=== PATIENT | male | born 1975 | race Caucasian/White ===

== ENCOUNTER 2023-02-12 09:40 | Outpatient (OUT) | payer OTHER, SELFPAY ==
[2023-02-12 10:22] LABS: Basophils Percent Auto 0.2 % (0.2-2.0); Eosinophils Absolute Auto 0.1 10^3/uL (0.0-0.7); Eosinophils Percent Auto 2.6 % (0.9-7.0); Hematocrit 39.3 % (42.0-54.0); Hemoglobin 13.7 g/dL (14.0-18.0); Immature Granulocytes Abs Auto 0.01 10^3/uL (0.00-0.03); Immature Granulocytes Pct Auto 0.2 % (0.0-0.5); Lymphocytes Percent Auto 20.9 % (20.5-60.0); Mean Corpuscular HGB Conc 34.9 g/dL (29.9-35.2); Mean Corpuscular Hemoglobin 30.6 pg (25.9-34.0); Mean Corpuscular Volume 87.9 fL (80.0-94.0); Mean Platelet Volume 10.4 fL (9.5-13.5); Monocytes Absolute Auto 0.4 10^3/uL (0.3-0.8); Monocytes Percent Auto 9.4 % (1.7-12.0); Neutrophils Absolute Auto 3.1 10^3/uL (1.4-6.5); Neutrophils Percent Auto 66.7 % (43.0-75.0); Platelet Count 147 10^3/uL (150-450); Red Blood Count 4.47 10^6/uL (4.70-6.10); Red Cell Distribution Width 11.9 % (11.0-15.0); White Blood Count 4.6 10^3/uL (4.0-11.0)
[2023-02-12 10:23] LABS: Estimated Average Glucose 82 mg/dL; Glycohemoglobin A1C 4.5 % (4.5-6.2)
[2023-02-12 10:36] LABS: Erythrocyte Sedimentation Rate 3 mm/hr (<=15)
[2023-02-12 11:11] LABS: Prostate Specific Antigen Scrn 1.44 ng/mL (<=4.00)
[2023-02-12 11:21] LABS: Alanine Aminotransferase 45 U/L (16-63); Albumin Globulin Ratio 1.1; Albumin Level 3.8 g/dL (3.4-5.0); Alkaline Phosphatase 76 U/L (46-116); Anion Gap 13.6; Aspartate Amino Transferase 26 U/L (15-37); BUN Creatinine Ratio 15.1; Bilirubin Total 0.4 mg/dL (0.2-1.0); Calcium 9.1 mg/dL (8.5-10.1); Carbon Dioxide 26.6 mmol/L (21.0-32.0); Chloride 105 mmol/L (98-107); Chol HDL Ratio 4.6; Cholesterol 198 mg/dL (<=200); Estimated GFR (African America >60 (>=60); Estimated GFR (Non-African Ame >60 (>=60); Free T3 3.07 pg/mL (2.18-3.98); Globulin 3.4 g/dL; Glucose 105 mg/dL (74-106); HDL Cholesterol 43 mg/dL (40-60); Potassium 4.2 mmol/L (3.5-5.1); Sodium 141 mmol/L (136-145); Total Protein 7.2 g/dL (6.4-8.2); Triglycerides 277 mg/dL (<=150); Uric Acid 7.2 mg/dL (3.5-7.2); VLDL CHOLESTEROL 55.4 mg/dL
[2023-02-12 11:54] LABS: C Reactive Protein <0.2 mg/dL (<=1.0)
[2023-02-13 05:07] LABS: Antistreptolysin O Ab 470.9 IU/mL (0.0-200.0)
[2023-02-13 07:08] LABS: Rheumatoid Factor (RF) <10.0 IU/mL (<14.0)
[2023-02-13 10:13] LABS: Insulin 12.6 uIU/mL (2.6-24.9)
[2023-02-15 14:09] LABS: Free Testosterone(Direct) 8.4 pg/mL (6.8-21.5); Testosterone 455 ng/dL (264-916)
== END 2023-02-12 09:41 ==
PROVIDERS: PCP Family Medicine; Visit Provider Family Medicine
DX: Z00.00 Encounter for general adult medical examination without abnormal findings (principal)
CPT/HCPCS: 36415; 80053; 80061; 83036; 83525; 84402; 84403; 84436; 84443; 84481; 84550; 85025; 85652; 86060; 86140; 86430; G0103

== ENCOUNTER 2023-03-27 08:58 | Outpatient (OUT) | payer OTHER, SELFPAY | END 2023-03-27 08:59 | disposition home or self-care (01) | PROVIDERS: PCP Family Medicine; Visit Provider Family Medicine | DX: R76.8 Other specified abnormal immunological findings in serum (principal) | CPT/HCPCS: 36415; 86060 ==

== ENCOUNTER 2025-03-10 15:03 | Outpatient (OUT) | payer OTHER, SELFPAY ==
--- OUTSIDE RECORDS SUMMARY | 2024-10-31 09:00 | XMS_ITS ---
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 Phone Jessika Carlos Primary Care Provider Allergies No Known Allergies Reason For Referral Reason colonsocpy Diagnosis 1 Well adult (Z00.00) Referral Organization [facility] Referring Provider First Name Carlos Referring Provider Last Name Jessika Referring Provider Speciality Family Med [place] Referred Provider Timoteo Titus Referred Provider Specialty General Surg tani Referral Priority Routine REASON FOR VISIT annual, wants shot for allergies, precaustion meds fro [place], wants prednisone Medications Medication SIG (Take, Route, Frequency, Duration) Notes Start Date End Date Status Dulera 200-5 MCG/ACT 2 puffs Inhalation Twice a day for 30 days Active predniSONE 20 MG 3 tablets Orally Onc e a day for 5 days 11/05/2023 Active predniSONE 20 MG 3 tablets Orally Onc e a day for 5 days 10/31/2024 Active Scopolamine HBr - 0.25/0.1ml- apply 0.2-0.3ml behind ear every 8 hours PRN topical tid for 7 11/05/2023 Active Albuterol Sulfate HFA 108 (90 Base) MCG/ACT 2 puff as needed Inhalation QID-PRN for 30 days Active Social History Tobacco Use: Social History Observation Description Date Details (start date - stop date) Never Smoker NA - NA Tobacco Use/Smoking Question Answer Notes Patient is a nonsmoker Vital Signs Weight 246.8 lbs 10/31/2024 Height 70 in 10/31/2024 Blood pressure systolic 128 mm Hg 11/01/19 25 Blood pressure diastolic 80 mm Hg 025 BMI 35.41 kg/m2 10/31/2024 Encounters Encounter Location Date Provider Diagnosis [facility] [place] [address] [place] [address] 10/31/2024 Carlos Rosen Well adult Z00.00 an d Allergic rhinitis, unspecified J30.9 Assessments Encounter Date Diagnosis (ICD Code) Assessment Notes Treatment Notes Treatment Clinical Notes Section Notes 10/31/2024 Well adult (ICD-10 - Z00.00) 10/31/2024 Allergic rhinitis, unspecified (ICD-10 - J30.9) Plan Of Treatment Medication Medication Name Sig Start Date Stop Date Notes predniSONE 20 MG 3 tablets Orally Once a day for 5 days Pending Test Test Name Order Date HEMOGLOBIN A1C (GLYCO) 10/31/2024 LIPID PANEL (CHOL/TRIG/HDL/LDL) 11/01/19 25 CBC WITH DIFF 10/31/2024 THYROID PANEL (T4/TSH/FREE T3) 5 PSA, SCREENING 10/31/2024 CMP (COMP MET CAIN) w/eGFR CKD-EPI 2024 Referrals Referral Date Details 10/31/2024 10/31/2024, colonsoc py, Timoteo Nill Medications Administered Medication Instructions Date of Administration Dosage Notes Triamcinolone 40 mg/ml 10/31/2024 80 mg Progress Notes * Nain PIRES DDOB: [birth year] (48 yo M)Acc No.[id number]:10/31/2024 Progress Note Patient: Radha GRULLON Nain Yancey Provider: Bc Rosen ([facility])MD :1975 A ge:48 Y S ex:Male Date:10/31/2024 Address:[address] [place] [address] [address], [facility], [id number] Check In:12:59 PM ESTCheck O ut:01:21 PM EST Subjective: * Chief Complaints: * A nnual, wants shot for allergiesprecaustion meds [place] * HPI: D epression Screening: PHQ-2 (2015 Edition) L ittle interest or pleasure in doing things??Not at all F eeling down, depressed, or hopeless? N ot at all T otal Score 0 * ROS: E ENT: hearing changes d enies. v isual changes d enies.?non-healing mouth sores d enies. s wollen glands or neck lumps d enies. h oarseness d enies. s ore throat d enies. d ifficulty swallowing d enies. n ose bleeds d enies. n nancy congestion d enies. e ar ache d enies. e ar discharge?denies. r inging in ears d enies. l ight sensitivity d enies. e ye pain d enies. b lurring d enies. e ye irritation d enies. d ouble vision d enies.?vision loss d enies. G eneral/Constitutional: Sweats: D enies. F atigue d enies. S leep problems d enies. A norexia d enies. M alaise d enies. W eight loss d enies.?Fatigue or Weakness d enies. F ever or Chills d enies. C ardiovascular: Shortness of Breath w/lying flat d enies. L ightheadedness/dizziness d enies. C hest tightness/ heavy pressure d enies. S welling of legs, ankles, or feet d enies. W aking up with shortness of breath d enies. C hest pain denies. P alpitations d enies. W eight gain d enies. R espiratory: Chronic or frequent cough d enies. C oughing up blood?denies. D ifficulty breathing d enies. P roductive cough d enies. S noring?denies. S hortness of breath that awakens from sleep (PND) d enies. C hest pain d enies. S putum production d enies. W heezing d enies. M usculoskeletal: Joint pain d enies. J oint Fluid d enies. B ack pain d enies. K nee pain d enies. N ever pain d enies. J oint Stiffness d enies. M uscle cramps d enies. W eakness of muscles d enies. A rthritis d enies. M uscle aches d enies. P ain in shoulder(s) d enies. S wollen joints d enies. * Active Problem List J30.9 Allergic rhinitis, u nspecified Modified On:02/12/2023 Status:confirmed J45.909 Asthma Modified On:02/12/2023U Status:confirmed G47.30 Sleep apnea Modified On:02/12/2023U Status:confirmed E78.1 Hypertriglyceridemia Modified On:02/12/2023U Status:confirmed Q24.5 Myocardial bridge Modified On:02/12/2023U Status:confirmed Z00.00 Well adult Modified On:11/05/2023 Status:confirmed * Medical History: * Surgical History: A ppendectomy Hernia Repair Heart Cath * Hospitalization/Major Diagno stic Procedure: D enies Past Hospitalization * Family History: F ather: alive, Colitis. M other: alive. B rother(s): alive. S ister(s): alive, Asthma, migraines. S on(s): alive. 1 brother(s) , 1 sister(s) . 1 son(s) . . * Social History: T obacco Use: T obacco Use/Smoking P atient is a n onsmoker * Medications: T akingAlbuterol Sulfate HFA 108 (90 Base) MCG/ACT Aerosol Solution 2 puff as needed Inhalation QID-PRN Dulera(Mometasone Furo-Formoterol Fum) 200-5 MCG/ACT Aerosol 2 puffs Inhalation Twice a day predniSONE 20 MG Tablet 3 tablets Orally Once a day Scopolamine HBr - Powder 0.25/0.1ml- apply 0.2-0.3ml behind ear every 8 hours PRN topical tid Taking Albuterol Sulfate HFA 108 (90 Base) MCG/ACT Aerosol Solution 2 puff as needed Inhalation QID-PRN Taking Dulera(Mometasone Furo-Formoterol Fum) 200-5 MCG/ACT Aerosol 2 puffs Inhalation Twice a day Taking predniSONE 20 MG Tablet 3 tablets Orally Once a day Taking Scopolamine HBr - Powder 0.25/0.1ml- apply 0.2- 0.3ml behind ear every 8 hours PRN topical tid DiscontinuedTamiflu(Oseltamivir Phosphate) 75 MG Capsule 1 capsule Orally Twice a day Medication List reviewed and reconciled with the patientDiscontinued Tamiflu(Oseltamivir Phosphate) 75 MG Capsule 1 capsule Orally Twice a day Medication List reviewed and reconciled with the patient * Allergies: N .K.D.A.no[Allergies Verified] Objective: * Vitals: W t:246.8lbs, Ht: 70 in, BP:128/80mm Hg, BMI:35.41Index, Ht-cm: 177.8 cm, Wt-k.95 kg. * Examination: P hysical Exam: GENERAL: w ell developed, well nourished, in no acute distress. HEAD: n ormocephalic/atraumatic. EYES: p upils equal, round and reactive to light, conjunctivae and sclerae normal. EARS: n o deformity or lesion of external ear, canals and TM appear normal bilaterally, TM's intact, not inflamed with normal light reflex, hearing grossly normal to conversational speech. NOSE: n o deformity, discharge, inflammation, or lesions.? MOUTH: m ucous membranes moist, normal oropharynx and posterior pharynx without lesions or exudates, tongue normal, dentition normal. NECK: n ever supple, no masses or palpable cervical nodes, trachea midline, thyroid without nodules, masses, tenderness, or enlargement. CHEST: n o chest wall deformity, no chest wall tenderness.? LUNGS: n ormal respiratory effort and clear to auscultation, no wheezes, rales, or rhonchi, good air exchange. CARDIO: r egular rate and rhythm, normal S1 and S2, nor murmur, rub, or gallop. PULSES: n ormal capillary refill. ABDOMEN: s oft, non-distended, non-tender, no masses. MUSCULOSKELETAL: n o deformity or scoliosis noted, normal range of motion, joints normal, no erythema, edema, effusion, or ecchymosis. EXTREMITY: n o clubbing, cyanosis, edema, or deformity with normal ROM in both upper and lower bilateral extremities. NEUROLOGIC: g rossly normal. SKIN: n o rashes, ulcerations, or suspicious lesions. LYMPH NODES: n o cervical adenopathy, nodes normal. MENTAL STATUS: a lert and oriented x3, normal mood and affect. Assessment: * Assessment: 1. W ell adult - Z00.00 (Primary) 2 . A llergic rhinitis, unspecified - J30.9 Plan: * Treatment: * Therapeutic Injections: Triamcinolone 40 mg/ml : 80 mg (Route: Intramuscular) given by KOREY Tompkins on left deltoid * Procedure Codes: 9 6372 THERAP.INJ. OF MED. INTRAMUSCULAR OR [id number] TMC ACET,PER 10MG., Units: 8.00 * Preventive Medicine: Screenings/Counseling: B AR ACTION PLAN Above Normal BMI Follow-up D ietary management education, guidance, and counseling * * Sign off status: Completed Visit Status: C HK (Check Out) true * Provider: Bc Rosen ([facility])MD Date: 0 10/31/2024 Generated for Printi ng/Faxing/eTransmitting on: 0 03/10/2025 03:05 PM EDT History and Physical Notes * HPI (History of Present Illness) Category Sub-Category Detail Notes Category Not es Depression Screening PHQ-2 (2015 Edition) Little interest or pleasure in doing things?: Not at all Feeling down, depressed, or hopeless?: N ot at all Total Score: 0 Examination Category Sub-Category Detail Notes Category Not es Physical Exam GENERAL: well developed, well nourished, in no acute distress HEAD: normocephalic/atraum atic EYES: pupils equal, round and reactive to light, conjunctivae and sclerae normal EARS: no deformity or lesi on of external ear, canals and TM appear normal bilaterally, TM's intact, not inflamed with normal light reflex, hearing grossly normal to conversational speech NOSE: no deformity, discha rge, inflammation, or lesions MOUTH: mucous membranes aster st, normal oropharynx and posterior pharynx without lesions or exudates, tongue normal, dentition normal NECK: neck supple, no mass es or palpable cervical nodes, trachea midline, thyroid without nodules, masses, tenderness, or enlargement CHEST: no chest wall deform ity, no chest wall tenderness LUNGS: normal respiratory e ffort and clear to auscultation, no wheezes, rales, or rhonchi, good air exchange CARDIO: regular rate and rhy thm, normal S1 and S2, nor murmur, rub, or gallop PULSES: normal capillary ref ill ABDOMEN: soft, non-distended, non-tender, no masses RECTAL: MUSCULOSKELETAL: no deformity or scol iosis noted, normal range of motion, joints normal, no erythema, edema, effusion, or ecchymosis EXTREMITY: no clubbing, cyanosi s, edema, or deformity with normal ROM in both upper and lower bilateral extremities NEUROLOGIC: grossly normal SKIN: no rashes, ulceratio ns, or suspicious lesions LYMPH NODES: no cervical adenopat hy, nodes normal MENTAL STATUS: alert and oriented x 3, normal mood and affect Consultation Request Notes Referral Date Referring Provider Referred Provider Not es 10/31/2024 Carlos Rosen, Timoteo craig
--- OUTSIDE RECORDS SUMMARY | 2025-03-10 15:05 | XMS_ITS | Clinical Summary ---
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
== END 2025-03-10 15:04 | disposition home or self-care (01) ==
LOC: PST 15:04
PROVIDERS: PCP Family Medicine; Visit Provider Surgery
DX: Z01.818 Encounter for other preprocedural examination (principal); Z12.11 Encounter for screening for malignant neoplasm of colon

== ENCOUNTER 2025-03-11 06:52 | Day surgery (SDC) | payer OTHER, SELFPAY ==
--- NOTE | 2025-03-11 | OP_ITS ---
OPERATION DATE: 03/11/2025 PREOPERATIVE DIAGNOSIS: Colorectal screening. POSTOPERATIVE DIAGNOSIS: 2 mm sigmoid polyp as well as diffuse moderate diverticulosis. PROCEDURE: Colonoscopy to cecum with cold biopsy forceps polypectomy x1. SURGEON: Timoteo Titus M.D. ANESTHESIA: Monitored anesthesia care. ESTIMATED BLOOD LOSS: Less than 1 mL. INDICATIONS AND CONSENT: Patient is a 49-year-old male presents for colorectal screening. Indications, risks, benefits, alternatives of proceeding with colonoscopy were explained extensively to the patient, including the risks of bleeding, colon perforation or anesthetic complications. All of his questions were answered. Informed consent was obtained. PROCEDURE: Patient brought to the operating room, placed in the left lateral decubitus position. Monitored anesthesia care was provided. Rectal exam was performed which showed no masses or blood. The scope was inserted into the anal canal. Under direct visualization was advanced. It was advanced to the cecum where cecal markings were clearly identified. There was noted to be a good prep. Upon withdrawal of the scope, mucosal surfaces were carefully examined. There were no mass lesions or inflammatory changes. There was diffuse diverticulosis throughout the colon, including the right colon, that was moderate, without inflammatory changes or scarring. Within the sigmoid colon, there was noted to be a 2 mm sessile erythematous polyp that was removed with cold biopsy forceps with good hemostasis. The scope was retroflexed in the anal canal. There was no significant hemorrhoidal disease. Scope was then withdrawn. Patient tolerated procedure well, was sent to recovery room in good condition. Follow up colonoscopy for surveillance likely in five years but will depend on pathology report. CC: Earle Rosen M.D. SHIMA
[2025-03-11 07:09] VITALS: BP 131/83; PULSE 69; TEMP 35.9; O2SAT 95; BMI 33.5
[2025-03-11] MEDS: 0.9 % SODIUM CHLORIDE 500 ML 50 ML IV (07:18)
[2025-03-11 08:29] VITALS: BP 120/71; PULSE 56; O2SAT 96
[2025-03-11 08:44] VITALS: BP 142/94; PULSE 58; O2SAT 96
== END 2025-03-11 08:59 | disposition home or self-care (01) ==
LOC: SURGOUT 06:52
PROVIDERS: PCP Family Medicine; Visit Provider Surgery
PROC: (CPT 811; principal; 2025-03-11 08:00)
DX: Z12.11 Encounter for screening for malignant neoplasm of colon (principal); K57.30 Diverticulosis of large intestine without perforation or abscess without bleeding; K63.5 Polyp of colon; J45.909 Unspecified asthma, uncomplicated; K21.9 Gastro-esophageal reflux disease without esophagitis; G47.33 Obstructive sleep apnea (adult) (pediatric); Z87.442 Personal history of urinary calculi; E78.1 Pure hyperglyceridemia; Z90.49 Acquired absence of other specified parts of digestive tract
CPT/HCPCS: 45380; J2704